=== PATIENT | male | born 1975 | race Two or more races ===

== ENCOUNTER 2022-09-16 21:55 | Emergency (ER) | payer MEDICAID ==
[~2022-09-16] VITALS: Ht 170.2 cm; Wt 99.8 kg
[2022-09-16 22:06] VITALS: BP_SYST 141
[2022-09-16] MEDS ORDERED: CEPH250C PO (22:48)
[2022-09-16 23:09] VITALS: BP_SYST 133
== END 2022-09-16 23:09 | disposition home or self-care (01) ==
LOC: SED 21:55
DX: L84 Corns and callosities (principal); M79.645 Pain in left finger(s); Z79.899 Other long term (current) drug therapy
CPT/HCPCS: 73140-TC; 99283